=== PATIENT | female | born 1985 | race Caucasian/White ===

== ENCOUNTER → 2017-10-27 15:38 | Outpatient (CLI) | payer OTHER, SELFPAY ==
[2017-10-27 17:26] LABS: Hematocrit 33.5 % (37-47); Hemoglobin 11.1 g/dl (12.0-15.0); Mean Corp Hgb Conc 33.1 g/gl (32-36); Mean Corpuscular Hgb 30.6 pg (27.0-32.0); Mean Corpuscular Volume 92.3 fL (81-99); Mean Platelet Vol. 9.7 fl (6.2-12.0); Platelet Count 265 K/mm3 (150-450); RBC Distribution Width CV 12.2 % (11.6-14.6); Red Blood Count 3.63 M/mm3 (4.2-5.4); White Blood Count 11.5 K/mm3 (4.4-11.0)
[2017-10-27 17:27] LABS: Scan Indicated on CBC? Y/N NO
[2017-10-27 18:31] LABS: Glucose Challenge Gest 1H 50g 100 mg/dL (70-140)
== END ==
PROVIDERS: Visit Provider Obstetrics & Gynecology
DX: Z34.83 Encounter for supervision of other normal pregnancy, third trimester (principal)
CPT/HCPCS: 36415; 82950; 85027

== ENCOUNTER → 2017-12-15 16:36 | Outpatient (CLI) | payer OTHER, SELFPAY ==
[2017-12-15 19:00] LABS: Group B Strep DNA By PCR Negative (Negative); Internal Control PASS; Probe Check PASS; Specimen Processing Control PASS
== END ==
PROVIDERS: Visit Provider Obstetrics & Gynecology
DX: Z36.85 Encounter for antenatal screening for Streptococcus B (principal)
CPT/HCPCS: 87081; 87653

== ENCOUNTER 2018-01-13 04:00 | Inpatient (IN) | payer OTHER, SELFPAY ==
[2018-01-13] VITALS (22 sets, daily range): BP systolic 91–123; BP diastolic 47–74; PULSE 67–104; RESP 16–20; TEMP 36.3–37.2; O2SAT 97–100; BMI 30.1
[2018-01-13] MEDS: Lactated Ringers 1,000 ML 999 ML IV (04:30)
[2018-01-13 04:49] LABS: Hematocrit 33.6 % (37-47); Hemoglobin 10.9 g/dl (12.0-15.0); Mean Corp Hgb Conc 32.4 g/gl (32-36); Mean Corpuscular Hgb 27.1 pg (27.0-32.0); Mean Corpuscular Volume 83.6 fL (81-99); Mean Platelet Vol. 9.7 fl (6.2-12.0); Platelet Count 261 K/mm3 (150-450); RBC Distribution Width CV 13.8 % (11.6-14.6); RBC Distribution Width SD 40.8 fl (35.1-43.9); Red Blood Count 4.02 M/mm3 (4.2-5.4); White Blood Count 12.7 K/mm3 (4.4-11.0)
[2018-01-13 04:50] LABS: Scan Indicated on CBC? Y/N NO
[2018-01-13] MEDS: Lactated Ringers 1,000 ML 100 ML IV ×3 (05:30→22:39)
[2018-01-13] MEDS: Sodium Citrate/Citric Acid 30 ML UDC PO (06:15)
[2018-01-13] MEDS: Methylergonovine 0.2 MG/ML Ampul IM (06:44)
[2018-01-13] MEDS: Oxytocin 30 units/NS 500 ml 30 UNITS/500 ML IV.SOLN 167 UNITS IV (07:00)
--- NOTE | 2018-01-13 09:40 | NURSING ---
Epidural cath removed, blue tip intact.
[2018-01-13] MEDS: Prenatal Vits Tablet 1 TABLET PO (12:24)
[2018-01-13] MEDS: Ketorolac 30 MG/ML Syringe IV ×2 (12:24→18:12)
--- NOTE | 2018-01-13 12:44 | NURSING ---
Toradol given at 1224 on 01/13/2018 was drawn up from 2 vials due to incomplete dose from first vial after medication was spilled. Medication given per Jules SINGLETON MVNU with Mert Kee [employer] instructor at bedside.
--- NOTE | 2018-01-13 13:03 | PCM.OP.BLANK ---
Operative Report Date of Procedure: 01/13/18 - 40 1/7 wk breech PROCEDURE: PRIMARY C SECTION Preoperative diagnosis: 40 17 wk EGA , Labor Breech presentation, in labor. SROM Postop diagnosis: 40 17 wk EGA , Labor Breech presentation, in labor. SROM Anesthesia: Spinal per Dave Dawson CRNA Surgeon: Kaitlin Richardson MD Director Regulatory Compliance: ELIAZAR Florentino EBL: 600 cc Complications: none Drains: Pichardo draining clear yellow urine Fluids: replacement LR Findings: At amniotomy, clear fluid was noted. Barkley viable male in breech presentation. Apgars 8/9, Baby weight:8# 7 oz There were normal appearing uterus, fallopian tubes and ovaries bilaterally. PATH: Routine cord gases, and cord blood for typing (if needed). Narrative account: After the risks, benefits and alternatives of the procedure were reviewed with the patient , informed consent was obtained. The patient was taken to the Operating room with an IV running, and epidural catheter in place. Her labor epidural was dosed to surgical levels. She was placed in dorsal supine position with leftward displacement of the uterus , briefly frog-legged for vaginal vault prep (in labor, SROM) and placement of the Pichardo catheter under sterile technique, and then repositioned again to dorsal supine position with leftward displacement of the uterus, and prepped and draped in the usual sterile fashion. Once the epidural was deemed adequate, a Pfannenstiel skin incision was created using the knife . The incision was carried down to the rectus fascia using the knife. The fascia was nicked in the midline. The fascial incision was extended bilaterally using curved Gonzalez scissors. The superior aspect of the fascial incision was grasped with Olga Lidia clamps and tented up and the underlying rectus abdominal muscles were dissected free. In a similar manner, the inferior aspect of the facial incision was grasped with Olga Lidia clamps tented up and the underlying rectus abdominal muscles were dissected free. The rectus abdominis muscles were widely . The peritoneum was identified and entered by blunt dissection. The peritoneal incision was then extended inferiorly and superiorly using Metzenbaum scissors. The peritoneum was stretched laterally and a bladder blade was inserted. The uterine incision was then created using Metzenbaum scissors.The uterine incision was extended by blunt dissection in a caudad- cephalad orientation using the bottomer operator's fingertips. Clear fluid was noted at amniotomy. The baby was then delivered by breech extraction. Using fundal pressure the baby was delivered to the level of the shoulders. The arms were reduced and the vertex was delivered then , maintaining nuchal flexion to effect delivery through the incision. The OP and nares were bulb suctioned on the abdomen. The cord was clamped x two and cut and the baby was shown briefly to his parents and then passed off to the nurse awaiting delivery. The baby had a spontaneous, vigorous cry. The umbilical cord was doubly clamped for later cord gas and cord blood collection as indicated. The placenta was then delivered. The uterus was exteriorized and cleared of clots and debris . The uterine incision was repaired with 1 Vicryl in a running locked fashion. A second imbricating layer was then placed, using 1 Monocryl in running nonlocked fashion. There was a small hematoma extending at the R uterine angle. this area was oversewn with a figure of 8 stitch of 1 Vicryl as needed for hemostasis and to stabilize the hematoma. The hematoma then remained soft and excellent hemostasis was noted. The uterus, fallopian tubes and ovaries were then inspected and returned to the abdominal cavity. The gutters were cleared of clots and debris. The uterine incision and fallopian tubes were again inspected. Excellent hemostasis was noted. The rectus abdominis and peritoneal edges were reapproximated in the midline with interrupted vertical mattress stitches of 1 Vicryl . Excellent hemostasis was noted at the subfascial space The fascia was closed in a running nonlocked fashion with strattofix suture. The Subcutaneous fatty tissue was Bovie cauterized as needed for hemostasis. This layer was then reapproximated with a nonlocked running 3-0 Vicryl. brisk bleeding was noted at the R side of the incision due to a vein. this was oversewn with figure of eight 3-0 vicryl and excellent hemostasis was noted. The skin edges were closed in a Subcuticular stitch of 4-0 Monocryl. The incision was cleansed. Seri-strips, and a sterile dressing (Mepilex) were applied. The patient was then transferred to the recovery room bed in stable condition after tolerating the procedure well. Sponge, lap, needle and instrument counts correct times two. Medications given preop and intraoperatively included: Clindamycin and Gentamicin were given IV director of marketing and promotions to the operating room. The patient also received Pitocin given IV after cord clamp, and Toradol 30 mg IV after cord clamp. Methergine 0.2 mg IM was given in the R thigh for initial uterine atony of the lower uterine segment. For a complete listing of medications given preop and intraoperatively, please see the anesthesia record.
--- NOTE | 2018-01-13 14:42 | NURSING ---
assumed care of Christina at 1440
[2018-01-13] MEDS: 0.9% Saline Lock 10 ML Syringe IV (18:12)
--- NOTE | 2018-01-13 18:43 | PCM.DCCSEC ---
Discharge Diet: No Restrictions Discharge Activity: May not drive while taking narcotic pain medications., May Shower, May Take a Tub Bath May resume sexual activity in: 4-6 weeks Lifting Restrictions: 20 pounds Additional Activity Instructions:: Nothing in the vagina for 4-6 weeks. You may return to work/school in 6 weeks. Change Dressing in (Days):: 4 Remove Dressing in (days):: 5 Cleanse incision/area with: Soap & Water, Keep Dressing Clean & Dry Additional Instructions: If you experience any of the following, contact your healthcare provider. Bleeding that soaks a pad every hour for 2 hours Fever 100.4 or higher Unrelieved incision or abdominal pain Swelling, redness, discharge or bleeding from your incision Problems urinating (including inability to urinate or burning while urinating). Visual changes Severe headache Flu-like symptoms Pain or redness in one of both of your breasts Pain, warmth, tenderness or swelling in your legs, especially the calf area Frequent nausea and vomiting Symptoms of depression or anxiety If you experience any of the following, call 911 or go to the nearest Emergency Room. Chest pain Problems breathing Seizure activity Partial or complete paralysis of a body part, slurred speech, weakness or drooping of the face, or a sudden inability to walk or hold your balance Allergies/Adverse Reactions: Allergies amoxicillin Allergy (Verified 01/13/18 04:57) Rash Medications to take at Discharge Prenatabs FA 1 tab PO DAILY 05/13/15 Acetaminophen [Tylenol] 1,000 mg PO Q8H PRN tablet 01/13/18 Naproxen [Naprosyn] 250 - 500 mg PO Q8H PRN PRN #30 tab 01/13/18 Oxycodone [Oxyir] 5 - 10 mg PO Q4H PRN PRN 7 Days #28 tab 01/13/18 Senna/Docusate Sodium [Senokot-S] 1 - 2 tab PO DAILY PRN #30 tab 01/13/18 The following prescriptions were given: Oxycodone [Oxyir] 5 - 10 mg PO Q4H PRN PRN 7 Days #28 tab PRN Reason: Mod-Severe Pain (4-10/10) Naproxen [Naprosyn] 250 - 500 mg PO Q8H PRN PRN #30 tab PRN Reason: Mild Pain (1-3/10) Senna/Docusate Sodium [Senokot-S] 1 - 2 tab PO DAILY PRN #30 tab PRN Reason: Constipation Orders to be completed after discharge: Electric breast pump Time Frame: 1 Year, Location: None Selected Follow-Up: Call to make an appointment with your doctor for an incision check in 1-2 weeks. You will also need a 6 week post- follow up appointment. Please Follow Up With: Kaitlin Richardson MD - [phone] When: Call to make an appointment for an incision check in 2 weeks. Primary Care Physician: Jen Saravia [Primary Care Provider] - Proposed Discharge Date: 01/16/18
--- NOTE | 2018-01-13 18:46 | DCINST_ITS ---
Discharge Diet: No Restrictions Discharge Activity: May not drive while taking narcotic pain medications., May Shower, May Take a Tub Bath May resume sexual activity in: 4-6 weeks Lifting Restrictions: 20 pounds Additional Activity Instructions:: Nothing in the vagina for 4-6 weeks. You may return to work/school in 6 weeks. Change Dressing in (Days):: 4 Remove Dressing in (days):: 5 Cleanse incision/area with: Soap & Water, Keep Dressing Clean & Dry Additional Instructions: If you experience any of the following, contact your healthcare provider. * Bleeding that soaks a pad every hour for 2 hours * Fever 100.4 or higher * Unrelieved incision or abdominal pain * Swelling, redness, discharge or bleeding from your incision * Problems urinating (including inability to urinate or burning while urinating) . * Visual changes * Severe headache * Flu-like symptoms * Pain or redness in one of both of your breasts * Pain, warmth, tenderness or swelling in your legs, especially the calf area * Frequent nausea and vomiting * Symptoms of depression or anxiety If you experience any of the following, call 911 or go to the nearest Emergency Room. * Chest pain * Problems breathing * Seizure activity * Partial or complete paralysis of a body part, slurred speech, weakness or drooping of the face, or a sudden inability to walk or hold your balance Allergies/Adverse Reactions: Allergies amoxicillin Allergy (Verified 01/13/18 04:57) Rash Medications to take at Discharge Prenatabs FA 1 tab PO DAILY 05/13/15 Acetaminophen [Tylenol] 1,000 mg PO Q8H PRN tablet 01/13/18 Naproxen [Naprosyn] 250 - 500 mg PO Q8H PRN PRN #30 tab 01/13/18 Oxycodone [Oxyir] 5 - 10 mg PO Q4H PRN PRN 7 Days #28 tab 01/13/18 Senna/Docusate Sodium [Senokot-S] 1 - 2 tab PO DAILY PRN #30 tab 01/13/18 The following prescriptions were given: Oxycodone [Oxyir] 5 - 10 mg PO Q4H PRN PRN 7 Days #28 tab PRN Reason: Mod-Severe Pain (-07/08) Naproxen [Naprosyn] 250 - 500 mg PO Q8H PRN PRN #30 tab PRN Reason: Mild Pain (-12/06) Senna/Docusate Sodium [Senokot-S] 1 - 2 tab PO DAILY PRN #30 tab PRN Reason: Constipation Orders to be completed after discharge: Electric breast pump Time Frame: 1 Year, Location: None Selected Follow-Up: Call to make an appointment with your doctor for an incision check in 1-2 weeks. You will also need a 6 week post- follow up appointment. Please Follow Up With: Kaitlin Richardson MD - [phone] When: Call to make an appointment for an incision check in 2 weeks. Primary Care Physician: Jen Saravia [Primary Care Provider] - Proposed Discharge Date: 01/16/18
[2018-01-14] VITALS (8 sets, daily range): BP systolic 90–99; BP diastolic 49–57; PULSE 73–98; RESP 16–18; TEMP 36.4–37.6; O2SAT 95–99
[2018-01-14] MEDS: Ketorolac 30 MG/ML Syringe IV ×5 (00:09→23:34)
[2018-01-14 06:21] LABS: Hematocrit 28.2 % (37-47); Hemoglobin 8.9 g/dl (12.0-15.0); Mean Corp Hgb Conc 31.6 g/gl (32-36); Mean Corpuscular Hgb 27.1 pg (27.0-32.0); Mean Platelet Vol. 10.1 fl (6.2-12.0); Platelet Count 200 K/mm3 (150-450); RBC Distribution Width CV 14.1 % (11.6-14.6); RBC Distribution Width SD 42.4 fl (35.1-43.9); Red Blood Count 3.28 M/mm3 (4.2-5.4); White Blood Count 14.8 K/mm3 (4.4-11.0)
[2018-01-14 06:28] LABS: Scan Indicated on CBC? Y/N NO
[2018-01-14] MEDS: 0.9% Saline Lock 10 ML Syringe IV ×2 (06:54→23:34)
--- NOTE | 2018-01-14 07:05 | PCM.PN.OB ---
Subjective: POD#1 Primary C section breech Doing well. Pain control adequate and baby is nursing well. reports minimal bleeding . Older son in yesterday to visit. No concerns voiced. Objective: Sitting up semirecumbent in bed, holding and nursing baby - Physical Exam General: Alert, Oriented x3, Cooperative, No apparent distress HEENT: Atraumatic Neck: Supple Abdomen: Soft - Fundus firm NT at approx 2 cm inferior to umbilicus Skin: Incision - Mepilex dressing CDI. Pinpoint of blood superficial at upper aspect of the dressing in midpoint Neurological: Cranial nerves II-XII grossly intact Psych/Mental Status: Normal Affect Vital Signs Temp Pulse Resp BP Pulse Ox 99.6 F H 84 16 95/49 L 99 01/14/18 00:20 01/14/18 04:11 01/14/18 04:11 01/14/18 00:20 01/14/18 04:11 Oxygen Delivery Method Room Air Weight: 89.868 kg Body Mass Index (BMI) 30.1 Intake and Output for Last 24 Hours 16/18 //18 01/14/18 23:59 23:59 23:59 Intake Total 3535 / 3535 Output Total 3125 / 3125 Balance 410 / 410 Laboratory Tests Past 24 Hrs 01/14/ 05:15 WBC 14.8 H RBC 3.28 L Hgb 8.9 L Hct 28.2 L MCV 86.0 MCH 27.1 MCHC 31.6 L RDW 14.1 RDW Differential 42.4 Plt Count 200 MPV 10.1 Medical Necessity - Tobacco Use Smoking Status: Never smoker Assessment/Plan POD#1 Primary C/S breech 40 1/7 wk Stable postop. Inc diet and activity as tolerated. Begin po meds. May shower. S/L IV. D/C maddox for voiding trial. Anemic prior to surgery and now with superimposed acute blood loss. Ferrous sulfate 325 mg po bid for one mo Continue routine care.
[2018-01-14] MEDS: Senna/Docusate Sodium 1 Tablet PO (08:37)
[2018-01-14] MEDS: Ferrous Sulfate 325 MG Tablet PO ×2 (10:39→17:06)
[2018-01-14] MEDS: Prenatal Vits Tablet 1 TABLET PO (11:54)
[2018-01-15 02:30] VITALS: BP 99/56; PULSE 83; RESP 16; TEMP 36.6; O2SAT 98
[2018-01-15] MEDS: Ketorolac 30 MG/ML Syringe IV (06:29)
[2018-01-15] MEDS: 0.9% Saline Lock 10 ML Syringe IV (06:30)
--- NOTE | 2018-01-15 07:32 | PCM.PN.OB ---
Subjective: POD#2 Primary C/S Breech Doing well. Nursing. Pain control adequate. No concerns and would like to go home today. Questions about stais, activity restrictions at home. - Physical Exam General: Alert, Oriented x3, Cooperative, No apparent distress HEENT: Atraumatic Neck: Supple Abdomen: Soft - Fundus firm NT at approx 2-3 cm inferior to umblicus Skin: Incision - Dressing CDI. (instructed to remove mepilex dressing in 3-4 d) Neurological: Cranial nerves II-XII grossly intact Psych/Mental Status: Normal Affect Vital Signs Temp Pulse Resp BP Pulse Ox 97.9 F 83 16 99/56 L 98 // 02:30 01/15/18 02:30 01/15/18 02:30 01/15/18 02:30 01/15/18 02:30 Oxygen Delivery Method Room Air Weight: 89.868 kg Body Mass Index (BMI) 30.1 Intake and Output for Last 24 Hours 04/17/18 18/18 18 23:59 23:59 23:59 Intake Total 3535 / 3535 1262 / 1262 Output Total 3125 / 3125 2450 / 2450 Balance 410 / 410 -1188 / -1188 Medical Necessity - Tobacco Use Smoking Status: Never smoker Assessment/Plan POD#2 Primary C/S breech 40 1/7 wk Stable postop. Requesting dischg home today. Dischg , RTO in 2 wk for postop incision check. Dischg instructions given.
--- NOTE | 2018-01-15 07:35 | PCM.DC.SUM ---
Discharge Date and Diagnosis Date of Admission: 01/13/18 - 40 1/7 wk. labor breech Date of Discharge: 01/15/18 - s/P primary C section Hospital Course and Treatment Operations: - - limited bedside sono per Dr Milton Mckeon for presentation. Primary C section for breech presentation in labor. Summary of Care Provided: The patient is a 32 year old female at 40 1/7 wk presents in labor. Breech presentation. Primary c section for malpresentation performed on 01/13/18 Barkley male. Procedure uncomplicated. Postop course uneventful. Mild anemia prior to surgery and postop acute blood loss anemia also. Dischgd home on POD #2 per pt request. Discharge Diet: No Restrictions Discharge Activity: May not drive while taking narcotic pain medications., May Shower, May Take a Tub Bath May resume sexual activity in: 4-6 weeks Additional Activity Instructions:: Nothing in the vagina for 4-6 weeks. You may return to work/school in 6 weeks. Change Dressing in (Days):: 4 Remove Dressing in (days):: 5 Cleanse incision/area with: Soap & Water, Keep Dressing Clean & Dry Home Medications: Medications to take at Discharge Prenatabs FA 1 tab PO DAILY 05/13/15 Acetaminophen [Tylenol] 1,000 mg PO Q8H PRN tablet 01/13/18 Naproxen [Naprosyn] 250 - 500 mg PO Q8H PRN PRN #30 tab 01/13/18 Oxycodone [Oxyir] 5 - 10 mg PO Q4H PRN PRN 7 Days #28 tab 01/13/18 Senna/Docusate Sodium [Senokot-S] 1 - 2 tab PO DAILY PRN #30 tab 01/13/18 Ferrous Sulfate 325 mg PO BIDCM #60 tab 01/14/18 Following Prescrptions Were Given to Patient: Oxycodone [Oxyir] 5 - 10 mg PO Q4H PRN PRN 7 Days #28 tab PRN Reason: Mod-Severe Pain (4-10/10) Naproxen [Naprosyn] 250 - 500 mg PO Q8H PRN PRN #30 tab PRN Reason: Mild Pain (1-3/10) Senna/Docusate Sodium [Senokot-S] 1 - 2 tab PO DAILY PRN #30 tab PRN Reason: Constipation Ferrous Sulfate 325 mg PO BIDCM #60 tab Other Amb Orders: Electric breast pump Time Frame: 1 Year, Location: None Selected Primary Care Physician: Jen Saravia [Primary Care Provider] - Please Follow Up With: Kaitlin Richardson MD - [phone] When: Call to make an appointment for an incision check in 2 weeks. Medical Necessity - Tobacco Use Smoking Status: Never smoker Meaningful Use Info Meaningful Use Diagnoses (Choose all that apply): None applicable
--- NOTE | 2018-01-15 07:39 | DS.PCM_ITS ---
Discharge Date and Diagnosis Date of Admission: 01/13/18 - 40 1/7 wk. labor breech Date of Discharge: 01/15/18 - s/P primary C section Hospital Course and Treatment Operations: - - limited bedside sono per Dr Milton Mckeon for presentation. Primary C section for breech presentation in labor. Summary of Care Provided: The patient is a 32 year old female at 40 1/7 wk presents in labor. Breech presentation. Primary c section for malpresentation performed on Barkley male. Procedure uncomplicated. Postop course uneventful. Mild anemia prior to surgery and postop acute blood loss anemia also. Dischgd home on POD #2 per pt request. Discharge Diet: No Restrictions Discharge Activity: May not drive while taking narcotic pain medications., May Shower, May Take a Tub Bath May resume sexual activity in: 4-6 weeks Additional Activity Instructions:: Nothing in the vagina for 4-6 weeks. You may return to work/school in 6 weeks. Change Dressing in (Days):: 4 Remove Dressing in (days):: 5 Cleanse incision/area with: Soap & Water, Keep Dressing Clean & Dry Home Medications: Medications to take at Discharge Prenatabs FA 1 tab PO DAILY 05/13/15 Acetaminophen [Tylenol] 1,000 mg PO Q8H PRN tablet 01/13/18 Naproxen [Naprosyn] 250 - 500 mg PO Q8H PRN PRN #30 tab 01/13/18 Oxycodone [Oxyir] 5 - 10 mg PO Q4H PRN PRN 7 Days #28 tab 01/13/18 Senna/Docusate Sodium [Senokot-S] 1 - 2 tab PO DAILY PRN #30 tab 01/13/18 Ferrous Sulfate 325 mg PO BIDCM #60 tab 01/14/18 Following Prescrptions Were Given to Patient: Oxycodone [Oxyir] 5 - 10 mg PO Q4H PRN PRN 7 Days #28 tab PRN Reason: Mod-Severe Pain (4-10/10) Naproxen [Naprosyn] 250 - 500 mg PO Q8H PRN PRN #30 tab PRN Reason: Mild Pain (1-3/10) Senna/Docusate Sodium [Senokot-S] 1 - 2 tab PO DAILY PRN #30 tab PRN Reason: Constipation Ferrous Sulfate 325 mg PO BIDCM #60 tab Other Amb Orders: Electric breast pump Time Frame: 1 Year, Location: None Selected Primary Care Physician: Jen Saravia [Primary Care Provider] - Please Follow Up With: Kaitlin Richardson MD - [phone] When: Call to make an appointment for an incision check in 2 weeks. Medical Necessity - Tobacco Use Smoking Status: Never smoker Meaningful Use Info Meaningful Use Diagnoses (Choose all that apply): None applicable
[2018-01-15] MEDS: Ferrous Sulfate 325 MG Tablet PO (08:14)
[2018-01-15] MEDS: Senna/Docusate Sodium 1 Tablet PO (10:52)
[2018-01-15] MEDS: Naproxen 250 MG Tablet PO (12:23)
[2018-01-15] MEDS: Prenatal Vits Tablet 1 TABLET PO (12:23)
== END 2018-01-15 13:25 | disposition home or self-care (01) | DRG 765 ==
PROVIDERS: Obstetrics & Gynecology; Admitting Provider Obstetrics & Gynecology; Family Provider Internal Medicine; PCP Internal Medicine; Visit Provider Obstetrics & Gynecology
DX: O32.1XX0 Maternal care for breech presentation, not applicable or unspecified (principal); D62 Acute posthemorrhagic anemia; O48.0 Post-term pregnancy; Z3A.17 17 weeks gestation of pregnancy; Z3A.40 40 weeks gestation of pregnancy; Z37.0 Single live birth; O62.2 Other uterine inertia; O99.013 Anemia complicating pregnancy, third trimester; D64.9 Anemia, unspecified
CPT/HCPCS: 59025; 59050; 85027; 86850; 86900; 99218; J7120; A4216; G0378; J2405; J3490